=== PATIENT | female | born 1940 | race Caucasian/White ===

== ENCOUNTER 2019-05-31 10:27 | Inpatient (IN) | payer MEDICARE ==
[~2019-05-31] VITALS: Ht 162.6 cm; Wt 65.4 kg
[~2019-05-31 10:27] MED LIST: ALPR-623 PO; AMIT25TA10 PO; ASPI-611 PO; CALCIUM; FAMO20TA8 PO; FIORINAL PO; HYDR200T84 PO; LEVO100T PO; OMEP20CA4 PO; VIT B12; VIT C; VIT D3; VIT E
[2019-05-31 11:09] LABS: BASOPHILS % (AUTO) 0 % (0-1); EOSINOPHILS % (AUTO) 0.2 % (0-6); HEMATOCRIT 32.2 % (35.0-45.0); HEMOGLOBIN 11.2 g/dl (12.0-16.0); LYMPHOCYTES # (AUTO) 0.2 X10'3 (1.1-4.8); LYMPHOCYTES % (AUTO) 1.2 % (21-51); MEAN CORPUSCULAR HEMOGLOBIN 33.4 PG (27.0-31.0); MEAN CORPUSCULAR HGB CONC 34.7 g/dL (33.0-36.5); MEAN CORPUSCULAR VOLUME 96.4 FL (78-98); MEAN PLATELET VOLUME 6.7 FL (7.4-10.4); MONOCYTES # (AUTO) 1.1 X10'3 (0-0.9); MONOCYTES % (AUTO) 5.4 % (2-12); NEUTROPHILS # (AUTO) 18.3 X10'3 (1.8-7.7); NEUTROPHILS % (AUTO) 93.2 % (42-75); PLATELET COUNT 334 X10'3 (140-440); RED BLOOD COUNT 3.34 X10'6 (4.20-5.60); RED CELL DISTRIBUTION WIDTH 12.7 % (11.5-14.5); WHITE BLOOD COUNT 19.6 X10'3 (4.5-11.0)
[2019-05-31 11:17] LABS: PARTIAL THROMBOPLASTIN TIME 26 SECONDS (22-32)
[2019-05-31 11:20] LABS: ALANINE AMINOTRANSFERASE 33 U/L (12-78); ALBUMIN 3.7 G/DL (3.4-5.0); ALBUMIN/GLOBULIN RATIO 1.1 (1.1-1.5); ANION GAP 9 (8-16); ASPARTATE AMINO TRANSFERASE 27 U/L (10-37); BILIRUBIN,TOTAL 0.5 MG/DL (0.1-1.0); BLOOD UREA NITROGEN 17 MG/DL (7-18); BUN/CREATININE RATIO 22.7 (6.6-38.0); CALCIUM 8.7 MG/DL (8.5-10.1); CHLORIDE 93 MMOL/L (99-107); CREATININE 0.75 MG/DL (0.40-0.90); GLUCOSE 113 MG/DL (70-104); POTASSIUM 4.6 MMOL/L (3.5-5.1); SODIUM 126 MMOL/L (135-145); TOTAL CARBON DIOXIDE 24.4 MMOL/L (24-32); eGFR 75 ML/MIN
[2019-05-31 11:21] LABS: ALKALINE PHOSPHATASE 70 IU/L (46-116)
[2019-05-31] MEDS ORDERED: normal saline 1000ML IV soln IV ONE (12:20)
[2019-05-31] MEDS ORDERED: CefTRIAXone 2gm/D5W 50ml 50 ML IV ONE (12:20)
[2019-05-31 13:33] LABS: CLARITY,URINE TURBID (Clear); COLOR,URINE YELLOW (Yellow); GLUCOSE, URINE NEGATIVE (Neg); KETONES,URINE TRACE mg/dl (Neg); LEUKOCYTE ESTERASE ,URINE LARGE (Neg); NITRITES, URINE NEGATIVE (Neg); OCCULT BLOOD,URINE TRACE-INTACT (Neg); PROTEIN,URINE TRACE mg/dl (Neg); UROBILINOGEN,URINE 0.2 E.U/dL (0.2-1.0)
[2019-05-31 13:34] LABS: UA COLLECTION TYPE CLN CATCH MIDSTREAM
[2019-05-31 13:38] LABS: BACTERIA,URINE FEW /HPF (Neg); WBC,URINE TNTC /HPF (0-4)
[2019-05-31 13:39] LABS: SQUAMOUS EPITHELIAL CELL,UR FEW /LPF (FEW)
--- NOTE | 2019-05-31 14:13 | NUR ---
UPDATED PT VS, PT FIRST LITER BOLUS FINISHED PER DR DEVRIES FINISH THE REMAINING 1500 OF FLUID BOLUS AT 200ML/HOUR PT HX OF CHF. PT REPORTS 7/10 HEADACHE PAIN FROM FALLING AND HITTING HEAD LAST NIGHT, PT A&OX 4, PT HAS NOT INJURY TO BACK OF HEAD.
[2019-05-31] MEDS ORDERED: ondansetron/PF 4mg/2ml inj IV PRN (14:20)
[2019-05-31] MEDS ORDERED: magnesium hydroxide 30ml (MOM) UD suspension PO PRN (14:20)
[2019-05-31] MEDS ORDERED: mag hydrox/Alum hydrox/simeth 30ml oral suspension PO PRN (14:20)
[2019-05-31] MEDS ORDERED: acetaminophen 325mg tablet PO PRN (14:20)
[2019-05-31] MEDS ORDERED: ALBU8.5H8 PO (14:36)
[2019-05-31] MEDS ORDERED: CHOL10002 PO (14:36)
[2019-05-31] MEDS ORDERED: MELA3TAB64 PO (14:36)
[2019-05-31] MEDS ORDERED: LACT1CAP65 PO (14:36)
[2019-05-31] MEDS ORDERED: GABA600T13 PO (14:36)
[2019-05-31] MEDS ORDERED: SACU1TAB PO (14:36)
[2019-05-31] MEDS ORDERED: TIOT4MIS5 PO (14:36)
[2019-05-31] MEDS ORDERED: POTA20TA19 PO (14:36)
[2019-05-31] MEDS ORDERED: VITE1000C PO (14:36)
[2019-05-31] MEDS ORDERED: CALC-336 PO (14:36)
[2019-05-31] MEDS ORDERED: SIME125C43 PO (14:36)
[2019-05-31 17:34] VITALS: BP 136/53
[2019-05-31] MEDS ORDERED: codeine/butalbital/acetaminophen/caffeine capsule PO PRN (17:50)
[2019-05-31] MEDS ORDERED: ipratropium 0.5 MG/2.5ML nebule IH PRN (18:10)
--- NOTE | 2019-05-31 18:24 | NUR ---
GAVE REPORT TO BRANDON BARRERA
[2019-05-31 19:30] VITALS: BP 124/50
[2019-05-31] MEDS: hydroxychloroquine 200mg tablet PO SCH (21:11)
[2019-05-31] MEDS: Melatonin 3mg tablet PO SCH (21:11)
[2019-05-31] MEDS: lactobacillus rhamnosus 10,000 MMU CELLS/CAPSULE PO SCH (21:14)
[2019-05-31] MEDS: gabapentin 300mg capsule PO SCH (21:15)
[2019-05-31] MEDS: famotidine 20mg tablet PO SCH (21:15)
[2019-05-31] MEDS: amitriptyline 50mg tablet PO SCH (21:16)
[2019-05-31] MEDS: heparin, porcine 5000 units/ml vial SQ SCH (21:18)
[2019-05-31] MEDS: sacubitril/valsartan 24mg-26mg tablet PO SCH (21:27)
[2019-06-01] VITALS: BP 102/37
[2019-06-01] MEDS: normal saline 1000ml 1,000 ML IV SCH ×2 (00:32→04:38)
[2019-06-01 05:56] LABS: BASOPHILS % (AUTO) 0.3 % (0-1); EOSINOPHILS # (AUTO) 0.5 X10'3 (0-0.9); EOSINOPHILS % (AUTO) 3.7 % (0-6); HEMATOCRIT 26.1 % (35.0-45.0); HEMOGLOBIN 9.2 g/dl (12.0-16.0); LYMPHOCYTES # (AUTO) 0.9 X10'3 (1.1-4.8); LYMPHOCYTES % (AUTO) 7.4 % (21-51); MEAN CORPUSCULAR HEMOGLOBIN 33.7 PG (27.0-31.0); MEAN CORPUSCULAR HGB CONC 35.2 g/dL (33.0-36.5); MEAN CORPUSCULAR VOLUME 95.7 FL (78-98); MONOCYTES # (AUTO) 0.6 X10'3 (0-0.9); MONOCYTES % (AUTO) 4.8 % (2-12); NEUTROPHILS # (AUTO) 10.4 X10'3 (1.8-7.7); NEUTROPHILS % (AUTO) 83.8 % (42-75); PLATELET COUNT 262 X10'3 (140-440); RED BLOOD COUNT 2.73 X10'6 (4.20-5.60); RED CELL DISTRIBUTION WIDTH 13.2 % (11.5-14.5); WHITE BLOOD COUNT 12.4 X10'3 (4.5-11.0)
[2019-06-01 06:03] LABS: ALBUMIN 2.8 G/DL (3.4-5.0); ANION GAP 9 (8-16); BLOOD UREA NITROGEN 12 MG/DL (7-18); BUN/CREATININE RATIO 22.6 (6.6-38.0); CALCIUM 8.3 MG/DL (8.5-10.1); CHLORIDE 104 MMOL/L (99-107); CREATININE 0.53 MG/DL (0.40-0.90); GLUCOSE 93 MG/DL (70-104); POTASSIUM 3.8 MMOL/L (3.5-5.1); SODIUM 134 MMOL/L (135-145); TOTAL CARBON DIOXIDE 21.2 MMOL/L (24-32); eGFR > 90 ML/MIN
--- NOTE | 2019-06-01 06:53 | NUR ---
Patient in room [facility]. I have received report from PAT RN and had the opportunity to ask questions and assume patient care.
[2019-06-01] MEDS: ALPRAZolam 0.25mg tablet PO SCH (08:00)
[2019-06-01] MEDS: heparin, porcine 5000 units/ml vial SQ SCH ×2 (08:22→20:38)
[2019-06-01] MEDS: CefTRIAXone/D5W-Rocephin 1gm 50 ML IV SCH (08:23)
[2019-06-01] MEDS: aspirin 81mg tablet.DR PO SCH (08:30)
[2019-06-01] MEDS: calcium carbonate 500mg tablet PO SCH (08:30)
[2019-06-01] MEDS: lactobacillus rhamnosus 10,000 MMU CELLS/CAPSULE PO SCH ×2 (08:30→20:37)
[2019-06-01] MEDS: hydroxychloroquine 200mg tablet PO SCH ×2 (08:30→20:38)
[2019-06-01] MEDS: famotidine 20mg tablet PO SCH ×2 (08:30→20:37)
[2019-06-01] MEDS: pantoprazole 40mg Tablet.DR PO SCH (08:30)
[2019-06-01] MEDS: levoTHYROXINE 100mcg tablet PO SCH (08:31)
[2019-06-01] MEDS: gabapentin 300mg capsule PO SCH ×2 (08:31→20:37)
[2019-06-01] MEDS: vitamin D (cholecalciferol) 1,000 unit tablet PO SCH (08:31)
[2019-06-01] MEDS: potassium Cl 20 mEq SR tablet PO SCH (08:31)
[2019-06-01] MEDS: amitriptyline 50mg tablet PO SCH (08:34)
[2019-06-01] MEDS: SIMETHICONE 125 MG CAPSULE PO SCH (08:35)
[2019-06-01] MEDS: sacubitril/valsartan 24mg-26mg tablet PO SCH ×2 (08:36→20:45)
--- NOTE | 2019-06-01 15:12 | NUR ---
Student documentation: I have reviewed all interventions, assessments performed and documented by Harpreet RESENDIZ
--- NOTE | 2019-06-01 16:00 | NUR ---
I have reviewed and agree with all medications administered and interventions performed by VAULT CUSTODIAN Student Severiano Matute.
--- NOTE | 2019-06-01 18:31 | NUR ---
Received report from Mary BARRERA pt is awake and alert eating dinner, visitor at bedside in no apparent distress.
[2019-06-01 19:00] VITALS: BP 135/49
[2019-06-01] MEDS: Melatonin 3mg tablet PO SCH (20:38)
[2019-06-02] VITALS: BP 142/57
[2019-06-02 05:19] LABS: BASOPHILS % (AUTO) 0.4 % (0-1); EOSINOPHILS # (AUTO) 0.6 X10'3 (0-0.9); EOSINOPHILS % (AUTO) 7.1 % (0-6); HEMATOCRIT 29.1 % (35.0-45.0); HEMOGLOBIN 10.2 g/dl (12.0-16.0); LYMPHOCYTES # (AUTO) 1.2 X10'3 (1.1-4.8); LYMPHOCYTES % (AUTO) 14.1 % (21-51); MEAN CORPUSCULAR HEMOGLOBIN 33.5 PG (27.0-31.0); MEAN CORPUSCULAR HGB CONC 34.9 g/dL (33.0-36.5); MEAN CORPUSCULAR VOLUME 95.8 FL (78-98); MONOCYTES # (AUTO) 0.6 X10'3 (0-0.9); MONOCYTES % (AUTO) 7.4 % (2-12); PLATELET COUNT 286 X10'3 (140-440); RED BLOOD COUNT 3.04 X10'6 (4.20-5.60); RED CELL DISTRIBUTION WIDTH 13.2 % (11.5-14.5); WHITE BLOOD COUNT 8.5 X10'3 (4.5-11.0)
[2019-06-02 05:39] LABS: ALBUMIN 3.1 G/DL (3.4-5.0); ANION GAP 10 (8-16); BLOOD UREA NITROGEN 5 MG/DL (7-18); BUN/CREATININE RATIO 9.3 (6.6-38.0); CALCIUM 8.4 MG/DL (8.5-10.1); CHLORIDE 103 MMOL/L (99-107); CREATININE 0.54 MG/DL (0.40-0.90); GLUCOSE 94 MG/DL (70-104); POTASSIUM 3.5 MMOL/L (3.5-5.1); SODIUM 136 MMOL/L (135-145); eGFR > 90 ML/MIN
--- NOTE | 2019-06-02 06:21 | NUR ---
Gave report to Mary BARRERA pt is awake and alert in no apparent distress, call light and items of freq use within reach.
[2019-06-02 07:00] VITALS: BP 136/55
[2019-06-02] MEDS: CefTRIAXone/D5W-Rocephin 1gm 50 ML IV SCH (07:36)
[2019-06-02] MEDS: heparin, porcine 5000 units/ml vial SQ SCH ×2 (07:37→20:27)
[2019-06-02] MEDS: aspirin 81mg tablet.DR PO SCH (07:38)
[2019-06-02] MEDS: sacubitril/valsartan 24mg-26mg tablet PO SCH ×2 (07:38→20:26)
[2019-06-02] MEDS: vitamin D (cholecalciferol) 1,000 unit tablet PO SCH (07:38)
[2019-06-02] MEDS: SIMETHICONE 125 MG CAPSULE PO SCH (07:39)
[2019-06-02] MEDS: famotidine 20mg tablet PO SCH ×2 (07:39→20:26)
[2019-06-02] MEDS: gabapentin 300mg capsule PO SCH ×2 (07:39→20:27)
[2019-06-02] MEDS: pantoprazole 40mg Tablet.DR PO SCH (07:40)
[2019-06-02] MEDS: potassium Cl 20 mEq SR tablet PO SCH (07:40)
[2019-06-02] MEDS: hydroxychloroquine 200mg tablet PO SCH ×2 (07:40→20:26)
[2019-06-02] MEDS: levoTHYROXINE 100mcg tablet PO SCH (07:40)
[2019-06-02] MEDS: lactobacillus rhamnosus 10,000 MMU CELLS/CAPSULE PO SCH ×2 (07:40→20:26)
[2019-06-02] MEDS: calcium carbonate 500mg tablet PO SCH (07:40)
[2019-06-02] MEDS: ALPRAZolam 0.25mg tablet PO SCH (08:00)
[2019-06-02 11:00] VITALS: BP 145/51
--- NOTE | 2019-06-02 17:24 | NUR ---
educated pt on positive mrsa
--- NOTE | 2019-06-02 17:50 | NUR ---
gave report to len maloney
--- NOTE | 2019-06-02 18:13 | NUR ---
Received report from Mary BARRERA pt is awake and alert on RA, eating dinner visitors at bedside in no apparent distress.
[2019-06-02] MEDS ORDERED: ALPRAZolam 0.25mg tablet PO SCH (18:34)
[2019-06-02 19:00] VITALS: BP 157/65
[2019-06-02] MEDS: amitriptyline 50mg tablet PO SCH (20:26)
[2019-06-02] MEDS: Melatonin 3mg tablet PO SCH (21:00)
[2019-06-03] VITALS: BP 131/64
[2019-06-03 05:58] LABS: BASOPHILS % (AUTO) 0.6 % (0-1); EOSINOPHILS # (AUTO) 0.7 X10'3 (0-0.9); EOSINOPHILS % (AUTO) 10.5 % (0-6); HEMATOCRIT 32.3 % (35.0-45.0); HEMOGLOBIN 11.1 g/dl (12.0-16.0); LYMPHOCYTES # (AUTO) 1.3 X10'3 (1.1-4.8); LYMPHOCYTES % (AUTO) 20.6 % (21-51); MEAN CORPUSCULAR HEMOGLOBIN 33.1 PG (27.0-31.0); MEAN CORPUSCULAR HGB CONC 34.2 g/dL (33.0-36.5); MEAN CORPUSCULAR VOLUME 96.8 FL (78-98); MONOCYTES # (AUTO) 0.6 X10'3 (0-0.9); MONOCYTES % (AUTO) 9.6 % (2-12); NEUTROPHILS # (AUTO) 3.8 X10'3 (1.8-7.7); NEUTROPHILS % (AUTO) 58.7 % (42-75); PLATELET COUNT 302 X10'3 (140-440); RED BLOOD COUNT 3.34 X10'6 (4.20-5.60); RED CELL DISTRIBUTION WIDTH 13.1 % (11.5-14.5); WHITE BLOOD COUNT 6.4 X10'3 (4.5-11.0)
--- NOTE | 2019-06-03 06:13 | NUR ---
Gave report to Eden BARRERA pt is awake and alert on RA, playing on her tablet in no apparent distress, call light and items of freq use within reach.
[2019-06-03 06:25] LABS: ALBUMIN 3.2 G/DL (3.4-5.0); ANION GAP 6 (8-16); BLOOD UREA NITROGEN 5 MG/DL (7-18); BUN/CREATININE RATIO 9.4 (6.6-38.0); CALCIUM 8.8 MG/DL (8.5-10.1); CHLORIDE 102 MMOL/L (99-107); CREATININE 0.53 MG/DL (0.40-0.90); GLUCOSE 83 MG/DL (70-104); POTASSIUM 3.6 MMOL/L (3.5-5.1); SODIUM 135 MMOL/L (135-145); TOTAL CARBON DIOXIDE 27.1 MMOL/L (24-32); eGFR > 90 ML/MIN
--- NOTE | 2019-06-03 06:33 | NUR ---
Patient in room [facility]. I have received report from HOLLY Michel and had the opportunity to ask questions and assume patient care.
[2019-06-03 07:00] VITALS: BP 141/61
[2019-06-03] MEDS: CefTRIAXone/D5W-Rocephin 1gm 50 ML IV SCH (07:40)
[2019-06-03] MEDS: lactobacillus rhamnosus 10,000 MMU CELLS/CAPSULE PO SCH (07:42)
[2019-06-03] MEDS: aspirin 81mg tablet.DR PO SCH (07:42)
[2019-06-03] MEDS: pantoprazole 40mg Tablet.DR PO SCH (07:42)
[2019-06-03] MEDS: sacubitril/valsartan 24mg-26mg tablet PO SCH (07:42)
[2019-06-03] MEDS: gabapentin 300mg capsule PO SCH (07:42)
[2019-06-03] MEDS: potassium Cl 20 mEq SR tablet PO SCH (07:42)
[2019-06-03] MEDS: calcium carbonate 500mg tablet PO SCH (07:43)
[2019-06-03] MEDS: famotidine 20mg tablet PO SCH (07:43)
[2019-06-03] MEDS: vitamin D (cholecalciferol) 1,000 unit tablet PO SCH (07:44)
[2019-06-03] MEDS: hydroxychloroquine 200mg tablet PO SCH (07:44)
[2019-06-03] MEDS: levoTHYROXINE 100mcg tablet PO SCH (07:44)
[2019-06-03] MEDS: heparin, porcine 5000 units/ml vial SQ SCH (07:45)
[2019-06-03] MEDS: SIMETHICONE 125 MG CAPSULE PO SCH (09:35)
[2019-06-03] MEDS ORDERED: LEVO500T89 PO (10:51)
[2019-06-03] MEDS ORDERED: levoFLOXACIN 500mg tablet PO ONE (10:55)
[2019-06-03 11:00] VITALS: BP 137/70
--- NOTE | 2019-06-03 11:50 | NUR ---
Patient discharge home via family and taken from unit via wheelchair with x1 staff. Patient alert, oriented and in no apparent distress at time of discharge. PIV removed with cannula intact, tele monitor removed and tele chambers notified. Patient was encouraged to follow up with PCP in 1-2 weeks. New prescription for antibiotic sent to [facility] on [address] per patient request. Patient given discharge instructions and was given time for questions and answers. Patient and family members stated an understanding of instructions. All belongings were taken from the unit by patient's daughter. Patient given first dose of antibiotic and was instructed to start taking the one's picked up from [facility] tomorrow and to take them all the way through the 7 days. Patient agreed.
== END 2019-06-03 11:35 | disposition home or self-care (01) | DRG 872 ==
LOC: ER 10:28 → ED HOLD 14:20 → SUR 3N 16:36
PROVIDERS: ADMIT Family Medicine; ATTEND Hospitalist
DX: A41.9 Sepsis, unspecified organism (principal); N39.0 Urinary tract infection, site not specified; E87.1 Hypo-osmolality and hyponatremia; I50.22 Chronic systolic (congestive) heart failure; R55 Syncope and collapse; E03.9 Hypothyroidism, unspecified; K21.9 Gastro-esophageal reflux disease without esophagitis; W18.39XA Other fall on same level, initial encounter; F41.9 Anxiety disorder, unspecified; B96.5 Pseudomonas (aeruginosa) (mallei) (pseudomallei) as the cause of diseases classified elsewhere; Z95.810 Presence of automatic (implantable) cardiac defibrillator; Z79.899 Other long term (current) drug therapy; Z79.890 Hormone replacement therapy; Y93.89 Activity, other specified; Y92.091 Bathroom in other non-institutional residence as the place of occurrence of the external cause; Y99.8 Other external cause status; Z90.710 Acquired absence of both cervix and uterus; Z90.49 Acquired absence of other specified parts of digestive tract; Z79.82 Long term (current) use of aspirin
CPT/HCPCS: 36415; 70450; 71045; 72125; 80048; 80053; 81001; 83605; 84145; 84484; 85025; 85610; 85730; 87040; 87077; 87081; 87088; 87186; 93005; 94640; 94760; 96365; 99285; G0378; J0696; J1644; J7030

== ENCOUNTER 2019-10-25 06:48 | Day surgery (SDC) | payer MEDICARE ==
[~2019-10-25] VITALS: Ht 160 cm; Wt 62.6 kg
[2019-10-25] VITALS (10 sets, daily range): BP systolic 105–152; BP diastolic 44–79
[~2019-10-25 06:48] MED LIST changes: +ALBU8.5H8 PO; +CALC-336 PO; -CALCIUM; +CHOL10002 PO; +GABA600T13 PO; +LACT1CAP65 PO; +MELA3TAB39 PO; +POTA20TA19 PO; +SACU1TAB PO; +SIME125C43 PO; +TIOT4MIS5 PO; -VIT B12; -VIT C; -VIT D3; -VIT E; +VITE1000C PO
[2019-10-25] MEDS ORDERED: cefazolin/dext.iso 2gm/100ml 100 ML IV ONE (07:20)
[2019-10-25] MEDS ORDERED: ceFAZolin 1GM/D5W- ADD-VANTAGE 50 ML IV ONE (07:20)
[2019-10-25] MEDS ORDERED: normal saline 1000ml 1,000 ML IV SCH ×2 (07:25→10:12)
[2019-10-25 07:34] LABS: ALBUMIN 4.1 G/DL (3.4-5.0); ANION GAP 5 (8-16); BLOOD UREA NITROGEN 11 MG/DL (7-18); CALCIUM 9.2 MG/DL (8.5-10.1); CHLORIDE 96 MMOL/L (99-107); CREATININE 0.58 MG/DL (0.40-0.90); GLUCOSE 83 MG/DL (70-104); POTASSIUM 3.9 MMOL/L (3.5-5.1); SODIUM 131 MMOL/L (135-145); TOTAL CARBON DIOXIDE 29.6 MMOL/L (24-32); eGFR > 90 ML/MIN
[2019-10-25 07:36] LABS: BASOPHILS # (AUTO) 0.1 X10'3 (0-0.2); EOSINOPHILS # (AUTO) 0.3 X10'3 (0-0.9); EOSINOPHILS % (AUTO) 3.7 % (0-6); HEMATOCRIT 36.5 % (35.0-45.0); HEMOGLOBIN 12.6 g/dl (12.0-16.0); LYMPHOCYTES # (AUTO) 2.1 X10'3 (1.1-4.8); LYMPHOCYTES % (AUTO) 30.5 % (21-51); MEAN CORPUSCULAR HGB CONC 34.5 g/dL (33.0-36.5); MEAN CORPUSCULAR VOLUME 92.8 FL (78-98); MEAN PLATELET VOLUME 6.7 FL (7.4-10.4); MONOCYTES # (AUTO) 0.7 X10'3 (0-0.9); MONOCYTES % (AUTO) 10.4 % (2-12); NEUTROPHILS # (AUTO) 3.8 X10'3 (1.8-7.7); NEUTROPHILS % (AUTO) 54.4 % (42-75); PLATELET COUNT 341 X10'3 (140-440); RED BLOOD COUNT 3.93 X10'6 (4.20-5.60); RED CELL DISTRIBUTION WIDTH 13.6 % (11.5-14.5)
[2019-10-25] MEDS ORDERED: VITA400C67 PO (08:15)
[2019-10-25] MEDS ORDERED: CYAN250014 (08:15)
[2019-10-25] MEDS ORDERED: ALBU8.5H8 INH (08:15)
[2019-10-25] MEDS ORDERED: FURO-150 PO (08:15)
[2019-10-25] MEDS ORDERED: METO-395 PO (08:15)
[2019-10-25] MEDS ORDERED: CA C1TAB95 (08:15)
[2019-10-25] MEDS ORDERED: KEN0.1O TP (08:15)
[2019-10-25] MEDS ORDERED: LIDOcaine 1%/PF 5ML 10 MG/ML VIAL ONE ×2 (08:25→09:01)
[2019-10-25] MEDS ORDERED: fentaNYL/PF 50MCG/1 ML 2ML syringe ONE ×2 (08:26→09:23)
[2019-10-25] MEDS ORDERED: iohexol 300 MG/1 ML 50ml polymer ONE (08:26)
[2019-10-25] MEDS ORDERED: midazolam 2 mg/2 ml injection ONE ×4 (08:26→09:22)
[2019-10-25] MEDS ORDERED: diphenhydrAMINE 50 mg/ml inj ONE (08:47)
[2019-10-25] MEDS ORDERED: morphine 4 MG/ML inj SYRINge IV PRN (10:15)
[2019-10-25] MEDS ORDERED: HYDROcodone/acetaminophen 5mg/325mg tablet PO PRN (10:15)
== END 2019-10-25 14:05 | disposition home or self-care (01) ==
LOC: SSTAY O 06:48
PROVIDERS: ATTEND Radiology Vascular & Interventional Radiology
DX: M80.08XA Age-related osteoporosis with current pathological fracture, vertebra(e), initial encounter for fracture (principal); M54.5 Low back pain; G62.9 Polyneuropathy, unspecified; Z79.899 Other long term (current) drug therapy; Z79.82 Long term (current) use of aspirin; X58.XXXA Exposure to other specified factors, initial encounter; Y93.89 Activity, other specified; Y92.89 Other specified places as the place of occurrence of the external cause; Y99.8 Other external cause status; E03.9 Hypothyroidism, unspecified; I51.9 Heart disease, unspecified; Z95.0 Presence of cardiac pacemaker
CPT/HCPCS: 22514; 36415; 80048; 85025; 85610; 99152; 99153; J1200; J2250; J3010; Q9967; C1713

== ENCOUNTER 2023-02-02 10:58 | Day surgery (SDC) | payer MEDICARE ==
[~2023-02-02] VITALS: Ht 157.5 cm; Wt 66.4 kg
[2023-02-02] VITALS (8 sets, daily range): BP systolic 107–154; BP diastolic 49–111
[~2023-02-02 10:58] MED LIST changes: +ALBU8.5H17 INH; +ALBU8.5H17 PO; -ALBU8.5H8 PO; +CA C1TAB95; +CYAN250014; -FAMO20TA8 PO; +FURO-150 PO; +HYDR200T73 PO; -HYDR200T84 PO; +KEN0.1O TP; -MELA3TAB39 PO; +METO-395 PO; +POTA-207 PO; -POTA20TA19 PO; +VITA400C67 PO
[2023-02-02] MEDS ORDERED: LORazepam 0.5 MG tablet PO PRN (11:20)
[2023-02-02] MEDS ORDERED: normal saline 1,000 ML IV SCH (11:20)
[2023-02-02 11:46] LABS: BASOPHILS # (AUTO) 0.1 X10'3 (0-0.2); BASOPHILS % (AUTO) 0.7 % (0-1); EOSINOPHILS # (AUTO) 0.2 X10'3 (0-0.9); EOSINOPHILS % (AUTO) 2.3 % (0-6); HEMATOCRIT 43.2 % (35.0-45.0); HEMOGLOBIN 14.2 g/dl (12.0-16.0); LYMPHOCYTES % (AUTO) 25.8 % (21-51); MEAN CORPUSCULAR HEMOGLOBIN 31.9 PG (27.0-31.0); MEAN CORPUSCULAR HGB CONC 32.9 g/dL (33.0-36.5); MEAN CORPUSCULAR VOLUME 96.7 FL (78-98); MEAN PLATELET VOLUME 6.6 FL (7.4-10.4); MONOCYTES # (AUTO) 0.7 X10'3 (0-0.9); MONOCYTES % (AUTO) 9.8 % (2-12); NEUTROPHILS # (AUTO) 4.7 X10'3 (1.8-7.7); NEUTROPHILS % (AUTO) 61.4 % (42-75); PLATELET COUNT 324 X10'3 (140-440); RED BLOOD COUNT 4.47 X10'6 (4.20-5.60); RED CELL DISTRIBUTION WIDTH 13.5 % (11.5-14.5); WHITE BLOOD COUNT 7.6 X10'3 (4.5-11.0)
[2023-02-02] MEDS ORDERED: FAMO20TA8 PO (11:46)
[2023-02-02] MEDS ORDERED: SACU1TAB7 PO (11:46)
[2023-02-02] MEDS ORDERED: EMPA10TA PO (11:46)
[2023-02-02] MEDS ORDERED: METO-384 PO (11:46)
[2023-02-02] MEDS ORDERED: MULT-1085 PO (11:46)
[2023-02-02] MEDS ORDERED: CLOP75TA34 PO (11:46)
[2023-02-02] MEDS ORDERED: BUTA1TAB54 PO (11:46)
[2023-02-02 11:50] LABS: ALBUMIN 4.4 G/DL (3.4-5.0); ANION GAP 10 (8-16); BLOOD UREA NITROGEN 21 MG/DL (7-18); BUN/CREATININE RATIO 25.6 (10.0-20.0); CALCIUM 9.2 MG/DL (8.5-10.1); CHLORIDE 97 MMOL/L (99-107); CREATININE 0.82 MG/DL (0.40-0.90); GLUCOSE 93 MG/DL (70-104); POTASSIUM 4.1 MMOL/L (3.5-5.1); SODIUM 134 MMOL/L (135-145); TOTAL CARBON DIOXIDE 26.8 MMOL/L (24-32); eGFR 67 ML/MIN
[2023-02-02] MEDS ORDERED: midazolam 1 mg/ML 2ml injection ONE (12:34)
[2023-02-02] MEDS ORDERED: LIDOcaine 1% 30ml preserv. free vial ONE (12:34)
[2023-02-02] MEDS ORDERED: iohexol 350 MG/ML 50ML vial IV ONE (12:34)
[2023-02-02] MEDS ORDERED: fentaNYL/PF 50MCG/1 ML 2ML syringe ONE (12:34)
[2023-02-02 14:41] LABS: ISTAT Hct MIX 39 %PCV (35-45); ISTAT O2 SATURATION MIX VENOUS 63 % (60-80); ISTAT SOURCE BLNK
[2023-02-02] MEDS ORDERED: HYDROcodone/acetaminophen 5mg/325mg tablet PO PRN (14:45)
[2023-02-02] MEDS ORDERED: HYDROcodone/acetaminophen 10/325mg tab PO PRN (14:45)
== END 2023-02-02 16:50 | disposition home or self-care (01) ==
LOC: SSTAY O 10:58
PROVIDERS: ATTEND Student in an Organized Health Care Education/Training Program
DX: I11.0 Hypertensive heart disease with heart failure (principal); I50.9 Heart failure, unspecified; M06.9 Rheumatoid arthritis, unspecified; I27.20 Pulmonary hypertension, unspecified; I08.0 Rheumatic disorders of both mitral and aortic valves; E87.1 Hypo-osmolality and hyponatremia; Z95.810 Presence of automatic (implantable) cardiac defibrillator; Z79.899 Other long term (current) drug therapy
CPT/HCPCS: 33289; 36415; 80048; 82803; 85014; 85025; 85610; 93005; 99152; 99153; C2624; J1644; J2250; J3010; J3490; J7030; Q9967; A6258; A6402; A6449; C1751; C1769; C1894

== ENCOUNTER 2024-03-15 08:10 | Day surgery (SDC) | payer MEDICARE ==
[~2024-03-15] VITALS: Ht 157.5 cm; Wt 68.1 kg
[~2024-03-15 08:10] MED LIST changes: -ALBU8.5H17 INH; -ALPR-623 PO; -AMIT25TA10 PO; +BUTA1TAB48 PO; -CALC-336 PO; -CHOL10002 PO; -CYAN250014; +EMPA10TA PO; +FAMO20TA8 PO; -FIORINAL PO; -FURO-150 PO; -HYDR200T73 PO; -KEN0.1O TP; +METO-384 PO; -METO-395 PO; +MULT-1085 PO; -OMEP20CA4 PO; -POTA-207 PO; -SACU1TAB PO; +SACU1TAB7 PO; -SIME125C43 PO; -TIOT4MIS5 PO; -VITA400C67 PO; -VITE1000C PO
[2024-03-15 08:34] VITALS: BP 135/78; PULSE 82; RESP 19
[2024-03-15] MEDS ORDERED: midazolam 1 mg/ML 2ml injection ONE (08:42)
[2024-03-15] MEDS ORDERED: fentaNYL/PF 50MCG/1 ML 2ML syringe ONE (08:42)
[2024-03-15] MEDS ORDERED: propofol 10mg/ml 20ml vial IV ONE (08:51)
[2024-03-15 09:14] VITALS: BP 123/68; PULSE 71; RESP 18; O2SAT 97
[2024-03-15 09:24] VITALS: BP 128/51; PULSE 68; RESP 16; O2SAT 95
[2024-03-15 09:34] VITALS: BP 108/56; PULSE 67; RESP 16; O2SAT 95
[2024-03-15 09:38] VITALS: BP 110/58; PULSE 65; RESP 14; O2SAT 96
== END 2024-03-15 09:41 | disposition home or self-care (01) ==
LOC: GI LAB 08:10
PROVIDERS: ATTEND Internal Medicine Gastroenterology
DX: R13.10 Dysphagia, unspecified (principal); K31.89 Other diseases of stomach and duodenum; K29.70 Gastritis, unspecified, without bleeding; D49.0 Neoplasm of unspecified behavior of digestive system
CPT/HCPCS: 43239; A4620; J2250; J2704; J3010; J7030; Z7512

== ENCOUNTER 2024-04-06 07:33 | Day surgery (SDC) | payer MEDICARE ==
[~2024-04-06] VITALS: Ht 157.5 cm; Wt 68.1 kg
[~2024-04-06 07:33] MED LIST changes: +CHOL100046 PO
[2024-04-06 07:52] VITALS: BP 127/58; PULSE 73; RESP 16
[2024-04-06] MEDS ORDERED: propofol 10mg/ml 20ml vial IV ONE (09:14)
[2024-04-06] MEDS ORDERED: simethicone 40mg/0.6ml oral drops 30ml ONE (09:14)
[2024-04-06 09:27] VITALS: BP 121/54; PULSE 66; RESP 13; O2SAT 100
[2024-04-06 09:30] VITALS: BP 109/54; PULSE 66; RESP 26; O2SAT 98
[2024-04-06 09:40] VITALS: BP 115/58; PULSE 65; RESP 11; O2SAT 99
[2024-04-06 09:50] VITALS: BP 121/56; PULSE 64; RESP 13; O2SAT 100
[2024-04-06 09:57] VITALS: BP 123/63; PULSE 63; RESP 15; O2SAT 100
== END 2024-04-06 10:15 | disposition home or self-care (01) ==
LOC: GI LAB 07:33
PROVIDERS: ATTEND Internal Medicine Gastroenterology
DX: R10.13 Epigastric pain (principal); D13.1 Benign neoplasm of stomach; K29.50 Unspecified chronic gastritis without bleeding; I11.0 Hypertensive heart disease with heart failure; I50.9 Heart failure, unspecified; J44.9 Chronic obstructive pulmonary disease, unspecified
CPT/HCPCS: 43239; A4620; J7030; Z7512; J2704